=== PATIENT | female | born 1990 | race Caucasian/White ===

== ENCOUNTER 2016-12-16 09:57 | Emergency (ER) | payer OTHER ==
[2016-12-16] MEDS ORDERED: DEXAMETHASONE 10 MG/ML VIAL IVP ONE (10:34)
[2016-12-16] MEDS ORDERED: ONDANSETRON 4 MG/2 ML VIAL IVP ONE (10:34)
--- NOTE | 2016-12-16 10:34 | EDPHY ---
H & P Stated Complaint: urbina/ocular flashes/numbnwss r hand throat/gums x 10 min/urbina persists HPI/ROS: CHIEF COMPLAINT: Headache, visual disturbance HISTORY OF PRESENT ILLNESS: Patient complains of aches that started in the past 2 days gradual onset. Constant duration. Associated with visual flashes in both eyes. Some nausea and photophobia. Some phonophobia. No neck pain or stiffness. No sudden onset. No chest pain. No shortness of breath. No diplopia. No blurred vision. No trauma or injury. Mother has a history of migraines and she is concerned that that is the same for her. No other associated complaints or modifying factors. REVIEW OF SYSTEMS: Ten systems reviewed and are negative unless otherwise noted in the HPI PAST MEDICAL HISTORY: None PAST SURGICAL HISTORY: None SOCIAL HISTORY: The previous smoker. Occasional alcohol. FAMILY HISTORY: Noncontributory EXAMINATION General Appearance: Alert, no distress Head: normocephalic, atraumatic Eyes: Pupils equal and round, no conjunctival pallor or injection. EOMs intact. No nystagmus ENT, Mouth: Mucous membranes moist. Airway patent Neck: Normal inspection, supple, non-tender. Painless range in all planes. No meningismus or rigidity Respiratory: Lungs are clear to auscultation. No wheezing, rhonchi or crackles Cardiovascular: Regular rate and rhythm . No murmur. Gastrointestinal: Abdomen is soft and nontender Back: non-tender, no bony abnormalities Neurological: GCS 15 A&O, nonfocal, normal gait. Strength symmetric in all limbs. No pronator drift. No dysmetria. Skin: Warm and dry, no rash Extremities: Nontender, no pedal edema Psychiatric: Mood and affect normal DIFFERENTIAL DIAGNOSES: Including but not limited to migraine, atypical migraine, headache, meningitis, subarachnoid hemorrhage, subdural hemorrhage MDM: 10:30 a.m. Headache that is consistent with migraine with aura. No focal findings. Vital signs were well within normal limits. Medications ordered. I have ordered CT scan as she has not had a headache like this in the past and does have family history of migraine. 11:30 a.m. Notified by radiologist Dr. Reyes. CT scan of the head is unremarkable for any acute changes. 12:00 p.m. I have re-evaluated the patient. Sofia Ling significantly better. Still has a mild headache but no visual disturbance. No nausea. And headache is tolerable to her. No evidence of meningitis or subarachnoid hemorrhage. She would like to be discharged home. I will do so with Fioricet and continuation [id number] Benadryl. She is to follow up with primary care physician and Neurology for definitive care. ED precautions discussed. She is comfortable this plan. Source: Patient Exam Limitations: No limitations - Personal History LMP (Females 10-55): IUD In Place Current Tetanus/Diphtheria Vaccine: Yes - Medical/Surgical History Hx Asthma: No Hx Chronic Respiratory Disease: No Hx Diabetes: No Hx Cardiac Disease: No Hx Renal Disease: No Hx Cirrhosis: No Hx Alcoholism: No Hx HIV/AIDS: No Hx Splenectomy or Spleen Trauma: No Other PMH: migraine urbina 5 yrs ago/family hx migraines - Social History Smoking Status: Former smoker Constitutional: Initial Vital Signs Heart Rate 65 12/16/16 10:00 Respiratory Rate 16 12/16/16 10:00 Blood Pressure 113/81 H 12/16/16 10:00 O2 Sat (%) 97 12/16/16 10:00 O2 Delivery Mode Room Air Allergies/Adverse Reactions: No Known Allergies Allergy (Unverified 12/16/16 10:01) Home Medications: Medication Instructions Recorded Codeine/Butalbit/Acetamin/Caff 1 each PO Q6 PRN #12 capsule 12/16/16 [Fioricet-Cod 11-82-321-40 Cap] Medical Decision Making - Diagnostics Imaging Results: Imaging Impressions Head CT 12/16/16 10:35 Impression: Head CT within normal limits. Results called to LOTUS Arevalo. General information for patients regarding this examination can be found at [email or web address]. If you have questions or comments about this report, please contact me at (hospital) or [phone] (cell). - Data Points Laboratory Results: Laboratory Results 12/16/16 10:30 12/16/16 10:30 12/16/16 12/16/16 12/16/16 10:30 10:30 10:30 WBC 5.28 10^3/uL 10^3/uL (3.80-9.50) RBC 4.40 10^6/uL 10^6/uL (4.18-5.33) Hgb 13.8 g/dL g/dL (12.6-16.3) Hct 41.6 % % (38.0-47.0) MCV 94.5 fL fL (81.5-99.8) MCH 31.4 pg pg (27.9-34.1) MCHC 33.2 g/dL g/dL (32.4-36.7) RDW 13.0 % % (11.5-15.2) Plt Count 192 10^3/uL 10^3/uL (150-400) MPV 10.4 fL fL (8.7-11.7) Neut % (Auto) 57.6 % % (39.3-74.2) Lymph % (Auto) 29.5 % % (15.0-45.0) Mccreary % (Auto) 10.0 % % (4.5-13.0) Eos % (Auto) 1.9 % % (0.6-7.6) Baso % (Auto) 0.8 % % (0.3-1.7) Nucleat RBC Rel Count 0.0 % % (0.0-0.2) Absolute Neuts (auto) 3.04 10^3/uL 10^3/uL (1.70-6.50) Absolute Lymphs (auto) 1.56 10^3/uL 10^3/uL (1.00-3.00) Absolute Monos (auto) 0.53 10^3/uL 10^3/uL (0.30-0.80) Absolute Eos (auto) 0.10 10^3/uL 10^3/uL (0.03-0.40) Absolute Basos (auto) 0.04 10^3/uL 10^3/uL (0.02-0.10) Absolute Nucleated RBC 0.00 10^3/uL 10^3/uL (0-0.01) Immature Gran % 0.2 % % (0.0-1.1) Immature Gran # 0.01 10^3/uL 10^3/uL (0.00-0.10) Sodium 138 mEq/L mEq/L (134-144) Potassium 4.4 mEq/L mEq/L (3.5-5.2) Chloride 103 mEq/L mEq/L (97-110) Carbon Dioxide 23 mEq/l mEq/l (22-31) Anion Gap 12 mEq/L mEq/L (8-16) BUN 15 mg/dL mg/dL (7-23) Creatinine 0.8 mg/dL mg/dL (0.6-1.0) Estimated GFR > 60 Glucose 93 mg/dL mg/dL (70-100) Calcium 9.5 mg/dL mg/dL (8.5-10.4) Beta HCG, Qual NEGATIVE Medications Given: Discontinued Medications Dexamethasone (Decadron Injection) 10 mg IVP EDNOW ONE Stop: 12/16/16 10:35 Last Admin: 12/16/16 10:40 Dose: 10 mg Diphenhydramine HCl (Benadryl Injection) 25 mg IVP EDNOW ONE Stop: 12/16/16 10:35 Last Admin: 12/16/16 10:40 Dose: 25 mg Sodium Chloride (Ns) 1,000 mls @ 0 mls/hr IV ONCE ONE PRN Reason: Wide Open Stop: 12/16/16 10:36 Last Admin: 12/16/16 10:39 Dose: 1,000 mls Metoclopramide HCl (Reglan Injection) 10 mg IVP EDNOW ONE Stop: 12/16/16 10:36 Last Admin: 12/16/16 10:40 Dose: 10 mg Ondansetron HCl (Zofran) 4 mg IVP EDNOW ONE Stop: 12/16/16 10:35 Last Admin: 12/16/16 10:39 Dose: 4 mg Departure - Departure Disposition: Home, Routine, Self-Care Clinical Impression: Headache Qualifiers: Headache type: unspecified Headache chronicity pattern: acute headache Intractability: not intractable Qualified Code(s): R51 - Headache Condition: Good Instructions: Migraine Headache (ED), Acute Headache (ED) Additional Instructions: 1. medication as prescribed as needed 2. [id number] Benadryl as prescribed as needed 3. Follow up with primary care physician and neurologist 4. ED precautions as discussed Referrals: Joseph Norris MD [[facility] – [place] Primary Care Provider] - As per Instructions Jack Neely MD [Medical Doctor] - As per Instructions Stand Alone Forms: Work Excuse Prescriptions: Codeine/Butalbit/Acetamin/Caff [Fioricet-Cod [id number] Cap] 1 each PO Q6 PRN #12 capsule PRN Reason: Headache
[2016-12-16] MEDS ORDERED: METOCLOPRAMIDE 10 MG/2 ML VIAL IVP ONE (10:35)
[2016-12-16] MEDS ORDERED: NS 1,000 ML IV ONE (10:35)
[2016-12-16 10:40] LABS: % IMMATURE GRANULYOCYTES 0.2 % (0.0-1.1); ABSOLUTE IMMATURE GRANULOCYTES 0.01 10^3/uL (0.00-0.10); ADD DIFF? NO; ADD MORPH? NO; ADD SCAN? NO; ATYPICAL LYMPHOCYTE FLAG 50 (0-99); FRAGMENT RBC FLAG 0 (0-99); HEMATOCRIT 41.6 % (38.0-47.0); HEMOGLOBIN 13.8 g/dL (12.6-16.3); LEFT SHIFT FLG 0 (0-99); LIPEMIA HEMOLYSIS FLAG 80 (0-99); MEAN CELL HEMOGLOBIN 31.4 pg (27.9-34.1); MEAN CELL HEMOGLOBIN CONCENTR. 33.2 g/dL (32.4-36.7); MEAN CELL VOLUME 94.5 fL (81.5-99.8); MEAN PLATELET VOLUME 10.4 fL (8.7-11.7); PLATELET CLUMPS FLAG 30 (0-99); PLATELET COUNT 192 10^3/uL (150-400)
[2016-12-16 10:55] LABS: ANION GAP 12 mEq/L (8-16); CALCIUM 9.5 mg/dL (8.5-10.4); CARBON DIOXIDE 23 mEq/l (22-31); CHLORIDE 103 mEq/L (97-110); CREATININE 0.8 mg/dL (0.6-1.0); GLOMERULAR FILTRATION RATE > 60; GLUCOSE 93 mg/dL (70-100); POTASSIUM 4.4 mEq/L (3.5-5.2); SODIUM 138 mEq/L (134-144)
[2016-12-16] MEDS ORDERED: KETOROLAC 30 MG/1 ML SDV IVP ONE (12:00)
[2016-12-16 12:41] VITALS: BP 101/59; PULSE 68; RESP 16; TEMP 97.9; O2SAT 96
== END 2016-12-16 12:42 | disposition home or self-care (01) ==
DX: R51 Headache (principal); Z87.891 Personal history of nicotine dependence
CPT/HCPCS: 96374; J1100; J1200; J1885; J2405; J2765